=== PATIENT | male | born 1950 | race Hispanic/Latino ===

== ENCOUNTER → 2024-10-06 | Outpatient (REF) | payer MEDICARE ==
[~2024-10-06] MED LIST: IOPAMIDOL 370 MG/ML 100 ML INFUS..BTL INJ ONE; SODIUM CHLORIDE 0.9% 100 ML ONE
[2024-10-06 15:41] LABS: CREATININE, SERUM 1.18 mg/dL (0.72-1.25)
== END ==
LOC: CT 14:43
PROVIDERS: ATTEND Internal Medicine Cardiovascular Disease
DX: I65.22 Occlusion and stenosis of left carotid artery (principal)
CPT/HCPCS: 36415; 70498; 82565; 84520; J7050; Q9967